=== PATIENT | male | born 1940 | race Caucasian/White ===

== ENCOUNTER 2024-11-20 07:48 | Emergency (ER) | payer OTHER, SELFPAY ==
[2024-11-20 07:55] VITALS: BP 119/54
--- NOTE | 2024-11-20 08:10 | ED.GENMED ---
History of Present Illness
General
Chief Complaint: Breathing Problem
Source: patient
Exam Limitations: none
Time Seen by Provider: 11/20/24 07:51
History of Present Illness
History of Present Illness:
84-year-old male with history of COPD on 4 L of oxygen chronically presents from [facility] as Js was having trouble getting a good pulse ox at the facility. He was not having any shortness of breath or cough. When EMS arrived he was on
his baseline 4 L and he was 97% on room air. Patient denies chest pain. He denies leg swelling. No fever. No other complaints
Phy Exam
Physical Exam
Physical Exam:
General: Well-appearing male no acute respiratory distress
HEENT: Normocephalic atraumatic
Heart: Regular rate and rhythm lungs clear slightly prolonged expiratory phase
Extremities: No cyanosis or edema
Skin is warm no rash
Scores
Heart Failure Risk
Heart Failure Risk Score: Not Applicable
Course
Orders/Labs/Results
Orders:
Orders
11/20/24 08:04
CR Chest - 2 Views Urgent
Comment:
Reason For Exam: sob
11/20/24 08:13
Basic Metabolic Panel Urgent
11/20/24 08:14
Complete Blood Count/With Diff Urgent
11/20/24 08:43
Urinalysis Reflex To Culture Urgent
Abnormal Lab Results
11/20/24 11/20/24
08:13 08:14
WBC 16.5 H 10^3/uL
(4.8-10.8)
RBC 3.70 L 10^6/uL
(4.70-6.10)
Hgb 11.6 L g/dL
(13.0-18.0)
Hct 34.4 L %
(39.0-52.0)
MCH 31.4 H pg
(27.0-31.0)
RDW 14.7 H %
(11.5-14.5)
MPV 10.5 H fL
(7.4-10.4)
Abs Immat Gran (auto) 0.1 H 10^3/uL
(0-0.05)
Absolute Neuts (auto) 14.0 H 10^3/uL
(1.4-6.5)
Absolute Lymphs (auto) 0.8 L 10^3/uL
(1.2-3.4)
Absolute Monos (auto) 1.4 H 10^3/uL
(0.1-0.6)
Neutrophils % 85.1 H %
(42.2-75.2)
Lymphocytes % 4.9 L %
(20.5-51.1)
Sodium 134 L mmol/L
(135-145)
Chloride 96 L mmol/L
(98-107)
Carbon Dioxide 38 H mmol/L
(22-30)
BUN 29 H mg/dl
(9-20)
11/20/24 08:14
11/20/24 08:13
Vital Signs
Initial and Last Documented VS:
Initial Vital Signs
Temp Pulse Resp BP Pulse Ox
97.8 F 77 16 119/54 97
11/20/24 07:55 11/20/24 07:55 11/20/24 07:55 11/20/24 07:55 11/20/24 07:55
Last Documented Vital Signs
Temp Pulse Resp BP Pulse Ox
97.8 F 68 17 113/42 95
11/20/24 07:55 11/20/24 09:00 11/20/24 09:00 11/20/24 09:00 11/20/24 09:07
MDM/Problems Addressed
Differential Diagnosis Includes:
Patient presents from facility after facility was having trouble getting a good oxygen reading. He was hypoxic at the facility but not hypoxic for EMS. He has no respiratory distress here on his baseline 4 L in the mid to upper 90s oxygenation.
Will order x-ray and basic labs and monitor the oxygen.
*Critical Care Note
Total Time (30-74mins, 75-104mins- exclusive of procedures): Not Applicable
Update Note
Update Note:
Patient reexamined. Still in no respiratory distress. Chest x-ray reviewed demonstrates right lower lobe consolidation possible pneumonia versus pleural effusion versus interstitial fibrosis. White blood cell count is 16.5. I discussed the
patient's case with his daughter, Suellen who is in registered nurse who happens to work at [facility] where he is from. The patient's white blood cell count has been elevated over the past several weeks. He was found to have a UTI and recently
started on Bactrim. When at [place] he had a pleural effusion that they drained 800 mL of fluid out. Patient has no new complaints. They are working him up for possible difficulty swallowing and aspiration. Long discussion with patient and
family over the telephone considering admission versus discharge home. Deferred to discharging back to [facility]. Will change Bactrim to Levaquin to cover the lungs. Return precautions were given
ED Attending Note
-
Portions of this chart may have been created with voice recognition software.� Occasional wrong word or��sound alike� substitutions may have occurred due to the inherent limitations of voice recognition software.
Discharge Plan
Departure
Patient Disposition: Home (Routine Discharge)
Date of Disposition: 11/20/24
Time of Disposition: 09:21
Patient with high blood pressure during this ER visit?: No
Discharge Problem:
Pneumonia, Leukocytosis
Prescriptions:
New
levofloxacin 750 mg tablet
750 mg PO DAILY 7 Days Qty: 7 0RF
Referrals:
Pasha Guadalupe DO [Family Provider, Family Practice]
Activity Restrictions/Additional Instructions:
Change Bactrim to Levaquin. Please return here for increasing respiratory distress fever or other concerning findings. As discussed, your x-ray findings are suggestive of pneumonia. Other items could include a pleural effusion. Continue
follow-up with your treating physician.
Interventions
Interventions:
*Risk Screen - Suicide Last Done: 11/20/24 08:01
*General Assessment Last Done: 11/20/24 08:00
*Neglect/Abuse Screening Last Done: 11/20/24 08:01
*ED- Fall Risk Assessment Last Done: 11/20/24 08:01
*ED COVID-19 Vaccine History Last Done: 11/20/24 08:00
ED- Cardiac Assessment Last Done: 11/20/24 08:01
ED- Pulmonary Assessment Last Done: 11/20/24 08:01
Discharge Date and Time
Print Language: [id number]
[2024-11-20 08:32] LABS: % Basophils 0.4 % (0-2); % Eosinophils 0.5 % (0-6); % Immature Granulocytes 0.5 % (0-0.5); % Lymphocytes 4.9 % (20.5-51.1); % Monocytes 8.6 % (1.7-9.3); % Neutrophils 85.1 % (42.2-75.2); Absolute Basophils 0.1 10^3/uL (0-0.2); Absolute Eosinophils 0.1 10^3/uL (0-0.7); Absolute Immature Granulocytes 0.1 10^3/uL (0-0.05); Absolute Lymphocytes 0.8 10^3/uL (1.2-3.4); Absolute Monocytes 1.4 10^3/uL (0.1-0.6); Hematocrit 34.4 % (39.0-52.0); Hemoglobin 11.6 g/dL (13.0-18.0); Mean Corp Hgb Conc. 33.7 g/dL (33.0-37.0); Mean Corpuscular Hgb 31.4 pg (27.0-31.0); Mean Platelet Volume 10.5 fL (7.4-10.4); Nucleated Red Blood Cells % 0 % (-); Platelet Count 375 10^3/uL (130-400); Red Cell Dist. Width 14.7 % (11.5-14.5); White Blood Cell Count 16.5 10^3/uL (4.8-10.8)
[2024-11-20 08:44] LABS: Blood Urea Nitrogen 29 mg/dl (9-20); Calcium 8.5 mg/dl (8.4-10.2); Carbon Dioxide 38 mmol/L (22-30); Chloride 96 mmol/L (98-107); Glucose 92 mg/dl (70-99); Sodium 134 mmol/L (135-145); eGFR > 60.00
[2024-11-20 09:00] VITALS: BP 113/42
== END 2024-11-20 10:03 | disposition home or self-care (01) ==
LOC: EMR 07:48
PROVIDERS: Physician Assistant; EMERGENCY PHYSICIAN Student in an Organized Health Care Education/Training Program; FAMILY PHYSICIAN Family Medicine
DX: J18.9 Pneumonia, unspecified organism (principal); D72.829 Elevated white blood cell count, unspecified; J44.0 Chronic obstructive pulmonary disease with (acute) lower respiratory infection; J43.9 Emphysema, unspecified
CPT/HCPCS: 99283; 71046; 80048; 85025